=== PATIENT | male | born 1935 | race Caucasian/White ===

== ENCOUNTER 2017-06-04 14:09 | Emergency (ER) | payer MEDICARE ==
[2017-06-04 15:26] VITALS: BP 130/54
--- NOTE | 2017-06-04 15:45 | UC ---
Respiratory Complaint HPI - HPI Summary HPI Summary: 3-4 days of nasal drainage and cough no fever, no body aches - History of Current Complaint Chief Complaint: UCGeneralIllness Stated Complaint: COLD SYMPTOMS Time Seen by Provider: 06/04/17 15:34 Hx Obtained From: Patient Onset/Duration: Sudden Onset, Lasting Days - 3-4 days Timing: Constant Severity Initially: Mild Severity Currently: Mild Pain Intensity: 0 Character: Cough: Nonproductive Aggravating Factors: Nothing Alleviating Factors: Other - otc medications Associated Signs And Symptoms: Positive: URI, Nasal Congestion - Allergies/Home Medications Allergies/Adverse Reactions: Allergies Allergy/AdvReac Type Severity Reaction Status Date / Time atorvastatin AdvReac Intermediate Itching Verified 06/04/17 15:26 Home Medications: Home Medications Dulaglutide (NF) [Trulicity (NF)] 1 inj WEEKLY 06/04/17 [History Confirmed 06/04] PMH/Surg Hx/FS Hx/Imm Hx Previously Healthy: No Endocrine History: Diabetes, Dyslipidemia Cardiovascular History: Hypertension - Surgical History Surgical History: Yes Surgery Procedure, Year, and Place: GALL BLADDER. PROSTATECTOMY. cardiac stent - Family History Known Family History: Positive: None - Social History Occupation: Retired Lives: With Family Alcohol Use: None Substance Use Type: None Smoking Status (MU): Former Smoker When Did the Patient Quit Smoking/Using Tobacco: 1985 - Immunization History Most Recent Influenza Vaccination: FALL 2013 Review of Systems Constitutional: Negative Skin: Negative Eyes: Negative ENT: Nasal Discharge, Sinus Congestion Respiratory: Cough Cardiovascular: Negative Gastrointestinal: Negative Genitourinary: Negative Motor: Negative Neurovascular: Negative Musculoskeletal: Negative Neurological: Negative Psychological: Negative Is Patient Immunocompromised?: No All Other Systems Reviewed And Are Negative: Yes Physical Exam Triage Information Reviewed: Yes Appearance: Well-Appearing, No Pain Distress, Well-Nourished Vital Signs: Initial Vital Signs Temp 98.5 F 06/04/17 15:21 Pulse 73 06/04/17 15:21 Resp 17 06/04/17 15:21 BP 130/54 06/04/17 15:21 Pulse Ox 96 06/04/17 15:21 Vital Signs Reviewed: Yes Eye Exam: Normal Eyes: Positive: Conjunctiva Clear ENT Exam: Normal ENT: Positive: Normal ENT inspection, Hearing grossly normal, Pharynx normal, Nasal congestion, Nasal drainage, TMs normal, Uvula midline. Negative: Tonsillar swelling, Tonsillar exudate, Trismus, Muffled voice, Hoarse voice, Dental tenderness, Sinus tenderness Dental Exam: Normal Neck exam: Normal Neck: Positive: 1 Respiratory Exam: Normal Respiratory: Positive: Chest non-tender, Lungs clear, Normal breath sounds, No respiratory distress, No accessory muscle use Cardiovascular Exam: Normal Cardiovascular: Positive: RRR, No Murmur, Pulses Normal, Brisk Capillary Refill Musculoskeletal Exam: Normal Musculoskeletal: Positive: Strength Intact, ROM Intact, No Edema Neurological Exam: Normal Neurological: Positive: Alert, Muscle Tone Normal Psychological Exam: Normal Skin Exam: Normal UC Diagnostic Evaluation - Laboratory O2 Sat by Pulse Oximetry: 96 Diagnostic Studies Comment: Influenza B (+) Respiratory Course/Dx - Course Course Of Treatment: Tamiflu, ibuprofen,tylenol, increase fluids follow with pcp - Differential Dx/Diagnosis Provider Diagnoses: Influenza B Discharge - Discharge Plan Condition: Stable Disposition: HOME Prescriptions: Oseltamivir CAP* [Tamiflu CAP*] 75 mg PO BID #10 cap Patient Education Materials: Influenza (ED) Referrals: Humberto Bazan MD [Primary Care Provider] - If Needed
== END 2017-06-04 16:15 | disposition home or self-care (01) ==
LOC: UCCORT 14:09
DX: J10.1 Influenza due to other identified influenza virus with other respiratory manifestations (principal); I10 Essential (primary) hypertension; E11.9 Type 2 diabetes mellitus without complications; Z87.891 Personal history of nicotine dependence
CPT/HCPCS: 87502; 99212; G0463

== ENCOUNTER 2018-12-31 08:26 | Emergency (ER) | payer MEDICARE, BC ==
[2018-12-31 08:42] VITALS: BP 157/61
--- NOTE | 2018-12-31 08:56 | UC ---
Respiratory Complaint HPI - HPI Summary HPI Summary: 83 yo diabetic with CAD, with cough and cold symptoms x 2 days. Cough is not productive, not short of breath, and blood sugars have not been increasing (has excellent control of blood sugars). Emesis x 1 yesterday after drinking a protein drink followed by vitamin supplemented water. Remote history of smoking. - History of Current Complaint Chief Complaint: UCGeneralIllness Stated Complaint: COUGH Time Seen by Provider: 12/31/18 08:45 Hx Obtained From: Patient, Family/[employer]er - here with his . Onset/Duration: Sudden Onset, Lasting Days - 2 Timing: Intermittent Episodes Severity Initially: Mild Severity Currently: None Pain Intensity: 0 Character: Cough: Nonproductive Aggravating Factors: Recumbent Position Alleviating Factors: Nothing Associated Signs And Symptoms: Positive: URI, Nasal Congestion, Hoarseness, Sinus Discomfort. Negative: Dyspnea, Fever, Chills, Wheezing - Risk Factors Pulmonary Embolism Risk Factors: Negative Cardiac Risk Factors: Hypertension Pseudomonas Risk Factors: Negative Tuberculosis Risk Factors: Negative - Allergies/Home Medications Allergies/Adverse Reactions: Allergies Allergy/AdvReac Type Severity Reaction Status Date / Time atorvastatin AdvReac Intermediate Itching Verified 12/31/18 08:42 Home Medications: Home Medications Aspirin 81 mg PO DAILY 12/31/18 [History Confirmed 12/31/18] Colesevelam HCl [Welchol] 625 mg PO TID 12/31/18 [History Confirmed 12/31/18] Furosemide 40 mg PO DAILY 12/31/18 [History Confirmed 12/31/18] Gabapentin [Neurontin] 100 mg PO DAILY 12/31/18 [History Confirmed 12/31/18] Hydralazine HCl 50 mg PO BID 12/31/18 [History Confirmed 12/31/18] Insulin Glargine,Hum.rec.anlog [Lantus] 30 unit SQ DAILY 12/31/18 [History Confirmed 12/31/18] Metoprolol Succinate 100 mg PO DAILY 12/31/18 [History Confirmed 12/31/18] PMH/Surg Hx/FS Hx/Imm Hx Endocrine History: Diabetes Cardiovascular History: Cardiac Disease, Hypertension Respiratory History: Pneumonia - Surgical History Surgical History: Yes Surgery Procedure, Year, and Place: GALL BLADDER. PROSTATECTOMY. cardiac stent - Social History Occupation: Retired Lives: With Family Alcohol Use: None Substance Use Type: None Smoking Status (MU): Former Smoker When Did the Patient Quit Smoking/Using Tobacco: 1985 - Immunization History Most Recent Influenza Vaccination: FALL 2013 Review of Systems All Other Systems Reviewed And Are Negative: Yes Constitutional: Positive: Fatigue ENT: Positive: Nasal Discharge, Sinus Congestion Respiratory: Positive: Cough. Negative: Shortness Of Breath Cardiovascular: Negative: Palpitations, Chest Pain Gastrointestinal: Positive: Other - appetite decreased with weight loss since taking Trulicity Musculoskeletal: Positive: Arthralgia - hx osteoarthritis, limits exercise. Neurological: Negative: Headache, Weakness Psychological: Positive: Negative Is Patient Immunocompromised?: No Physical Exam Triage Information Reviewed: Yes Appearance: Ill-Appearing - congested, looks fatigued and unwell, Obese Vital Signs: Initial Vital Signs Temp 98.4 F 12/31/18 08:38 Pulse 88 12/31/18 08:38 Resp 16 12/31/18 08:38 BP 157/61 12/31/18 08:38 Pulse Ox 96 12/31/18 08:38 Eyes: Positive: Conjunctiva Inflamed - mild injection bilaterally ENT: Positive: Pharynx normal Dental: Positive: Other: - upper denture Neck: Positive: Supple, Nontender, No Lymphadenopathy Respiratory: Positive: Lungs clear, Normal breath sounds, No respiratory distress, No accessory muscle use Cardiovascular: Positive: RRR, No Murmur Musculoskeletal: Positive: No Edema Neurological: Positive: Alert Diagnostics - Radiology No standard instances Radiology Interpretation Completed By: Radiologist - Stigmata of chronic obstructive lung disease, no acute findings per Dr. Edwards. Respiratory Course/Dx - Course Course Of Treatment: Continue symptomatic treatment of viral infection. - Differential Dx/Diagnosis Differential Diagnosis/HQI/PQRI: Laryngitis, Lower Resp Infection, Sinusitis Provider Diagnosis: URI, acute Discharge ED - Sign-Out/Discharge Documenting (check all that apply): Patient Departure All imaging exams completed and their final reports reviewed: Yes - Discharge Plan Condition: Stable Disposition: HOME Patient Education Materials: Upper Respiratory Infection (ED) Referrals: Humberto Bazan MD [Primary Care Provider] - Additional Instructions: As reviewed, you do not have xray findings to suggest pneumonia. The illness you have is most consistent with a viral respiratory illness. Continue use of Tussin, continue monitoring blood sugars and eating well. Increase fluids. Follow up if you have increasing shortness of breath, develop a fever, or have increasing blood sugars. - Billing Disposition and Condition Condition: STABLE Disposition: Home
== END 2018-12-31 10:20 | disposition home or self-care (01) ==
LOC: UCCORT 08:26
DX: J06.9 Acute upper respiratory infection, unspecified (principal); I25.10 Atherosclerotic heart disease of native coronary artery without angina pectoris; I10 Essential (primary) hypertension; Z87.891 Personal history of nicotine dependence; E11.9 Type 2 diabetes mellitus without complications; Z79.84 Long term (current) use of oral hypoglycemic drugs; Z79.4 Long term (current) use of insulin
CPT/HCPCS: 71046; 99211; G0463